=== PATIENT | female | born 1975 | race African-American/Black ===

== ENCOUNTER 2017-05-08 15:51 | Inpatient (IN) ==
[2017-05-08 17:05] LABS: Basophils % 0.2 % (0.0-0.8); Eosinophils # 0.1 10*3/uL (0.0-0.87); Eosinophils % 0.7 % (0.00-10.9); Hematocrit 35.8 VOL% (35.7-47.0); Hemoglobin 12.1 GM/DL (12.0-16.0); Immature Granulocytes % 0.4 %; Immature Granulocytes Absolute 0.04 #; Lymphocytes # 1.8 10*3/uL (1.4-4.0); Lymphocytes % 16.4 % (21.3-54.2); Mean Corpuscular HGB Conc 33.8 GM/DL (32-36); Mean Corpuscular Hemoglobin 31 PG (27-34); Mean Corpuscular Volume 90.9 FL (87-102); Mean Platelet Volume 9.1 FL (9.6-12.0); Monocytes # 0.5 10*3/uL (0.11-0.8); Monocytes % 4.4 % (1.7-12.7); Neutrophils # 8.4 10*3/uL (1.4-7.4); Neutrophils % 77.9 % (38.7-73.9); Platelet Count 178 T/CUMM (130-400); Red Blood Count 3.94 MC/CUMM (3.8-5.5); Red Cell Distribution Width 13.2 % (9.3-17.3); White Blood Count 10.8 T/CUMM (4-12)
[2017-05-08 17:16] LABS: PT Patient Result 10.6 SECS; Partial Thromboplastin Time 25.7 SECS (0-40)
[2017-05-08 17:26] LABS: Albumin 3.2 G/DL (3.4-5.0); Bilirubin,Total 0.5 MG/DL (0.2-1.0); Calcium 8.4 MG/DL (8.5-10.1); Osmolality,Calculated 281.3 MOS/KG (273-304); Potassium 3.5 MMOL/L (3.5-5.1); Total Protein 7.6 G/DL (6.4-8.3)
[2017-05-08] MEDS ORDERED: ONDANSETRON 4 MG/2 ML VIAL IV PRN (17:46)
[2017-05-08] MEDS ORDERED: SODIUM CHLORIDE 0.65% NASAL SPRAY 45 ML BOTTLE BOTH NARES PRN (17:48)
[2017-05-08] MEDS ORDERED: POTASSIUM CHLORIDE INJ 10 MEQ in SODIUM CHLORIDE 0.45% 1,000 ML IV SCH (18:00)
[2017-05-08] MEDS ORDERED: ONDANSETRON 4 MG/2 ML VIAL ONE (18:14)
[2017-05-08] MEDS ORDERED: MORPHINE 2 MG/1 ML SYRINGE ONE (18:15)
[2017-05-08] MEDS: MORPHINE 2 MG/1 ML SYRINGE IV PRN (18:16)
[2017-05-08 18:21] LABS: Apearance,Urine CLEAR (Clear); Bilirubin,Urine Negative (Negative); Blood, Urine Negative (Negative); Glucose,Urine (UA) Negative (Negative); Hyaline Casts,Urine 1 /LPF (0-3); Ketones,Urine Negative (Negative); Mucus,Urine Occasional /LPF (Occasional); Nitrite,Urine Negative (Negative); Protein,Urine Negative; RBC,Urine 1 /HPF (0-4); Squamous Epithelial Cell,Urine Occasional /HPF (0-10); Urine Color Yellow (Yellow); Urine Specific Gravity 1.013 (1.001-1.035); Urine Urobilinogen < 2.0 EU/DL (0.2-1.0); WBC,Urine 5 /HPF (0-6)
[2017-05-08] MEDS ORDERED: hydrALAZINE 20 MG/1 ML VIAL IV STA (18:38)
[2017-05-08] MEDS ORDERED: hydrALAZINE 20 MG/1 ML VIAL ONE (18:42)
[2017-05-08] MEDS ORDERED: METOPROLOL TARTRATE 25 MG TABLET PER TUBE SCH (21:00)
[2017-05-08] MEDS: INSULIN GLARGINE 100 UNIT/ML SUBCUT SCH (21:28)
[2017-05-08] MEDS: SODIUM CHLOR 0.45% KCL 20 MEQ 20 MEQ/1,000 ML BAG IV SCH (21:47)
[2017-05-08] MEDS: METOPROLOL TARTRATE 50 MG TABLET PER TUBE SCH (21:47)
[2017-05-08] MEDS: DOXAZOSIN 4 MG TABLET PER TUBE SCH (21:47)
[2017-05-09 03:50] LABS: Potassium 3.9 MMOL/L (3.5-5.1)
[2017-05-09] MEDS: SODIUM CHLOR 0.45% KCL 20 MEQ 20 MEQ/1,000 ML BAG IV SCH ×3 (07:40→21:11)
[2017-05-09] MEDS ORDERED: metFORMIN 500 MG TABLET PER TUBE SCH (08:00)
[2017-05-09] MEDS ORDERED: LISINOPRIL 20 MG TABLET PER TUBE SCH (09:00)
[2017-05-09] MEDS ORDERED: ceFAZolin 1,000 MG VIAL ONE (09:41)
[2017-05-09] MEDS: METOPROLOL TARTRATE 50 MG TABLET PER TUBE SCH (10:35)
[2017-05-09] MEDS: DOXAZOSIN 4 MG TABLET PER TUBE SCH (10:35)
[2017-05-09] MEDS ORDERED: PROPOFOL 200 MG/20 ML VIAL IV ONE (11:11)
[2017-05-09] MEDS ORDERED: NEOSTIGMINE 10 MG/10 ML VIAL ONE (11:12)
[2017-05-09] MEDS ORDERED: MIDAZOLAM 2 MG/2 ML VIAL ONE (11:12)
[2017-05-09] MEDS ORDERED: ONDANSETRON 4 MG/2 ML VIAL ONE (11:12)
[2017-05-09] MEDS ORDERED: GLYCOPYRROLATE 0.4 MG/2 ML VIAL ONE (11:12)
[2017-05-09] MEDS ORDERED: DESFLURANE 1 UNIT/15 MINUTE INH ONE (11:12)
[2017-05-09] MEDS ORDERED: fentaNYL 100 MCG/2 ML VIAL ONE (11:12)
[2017-05-09] MEDS ORDERED: ROCURONIUM 100 MG/10 ML VIAL IV ONE (11:13)
[2017-05-09] MEDS: MORPHINE 2 MG/1 ML SYRINGE IV PRN ×3 (11:36→21:14)
[2017-05-09] MEDS ORDERED: DEXTROSE 50% 25 GM/50 ML VIAL IV PRN (11:46)
[2017-05-09] MEDS ORDERED: GLUCAGON 1 MG VIAL IM PRN (11:46)
[2017-05-09] MEDS: INSULIN LISPRO 100 UNIT/ML SUBCUT SCH ×3 (13:09→20:52)
[2017-05-09] MEDS ORDERED: hydrALAZINE 20 MG/1 ML VIAL IV PRN (14:43)
[2017-05-09] MEDS ORDERED: hydrALAZINE 20 MG/1 ML VIAL IV ONE ×2 (14:43→16:14)
[2017-05-09] MEDS: CARVEDILOL 3.125 MG TABLET PO SCH ×2 (15:34→21:12)
[2017-05-09] MEDS: amLODIPine 5 MG TABLET PO SCH (15:34)
[2017-05-09] MEDS ORDERED: DILTIAZEM CD 240 MG CAPSULE PO ONE (16:13)
[2017-05-09] MEDS: LISINOPRIL 20 MG TABLET PO SCH (16:26)
[2017-05-09] MEDS: METOPROLOL TARTRATE 50 MG TABLET PO SCH ×2 (16:26→21:12)
[2017-05-09] MEDS: metFORMIN 500 MG TABLET PO SCH (18:12)
[2017-05-09] MEDS ORDERED: ACETAMINOPHEN 160 MG/5 ML UDCUP PER TUBE PRN (20:32)
[2017-05-09] MEDS: INSULIN GLARGINE 100 UNIT/ML SUBCUT SCH (20:53)
[2017-05-09] MEDS: CALCIUM (CARBONATE)/VITAMIN D 600 MG-400 UNIT TABLET PO SCH (21:12)
[2017-05-09] MEDS: DOXAZOSIN 4 MG TABLET PO SCH (21:12)
[2017-05-10 06:12] LABS: Basophils % 0.2 % (0.0-0.8); Eosinophils # 0.2 10*3/uL (0.0-0.87); Eosinophils % 2.6 % (0.00-10.9); Hematocrit 30.1 VOL% (35.7-47.0); Hemoglobin 10.3 GM/DL (12.0-16.0); Immature Granulocytes % 0.4 %; Immature Granulocytes Absolute 0.04 #; Lymphocytes # 1.6 10*3/uL (1.4-4.0); Lymphocytes % 18.1 % (21.3-54.2); Mean Corpuscular HGB Conc 34.2 GM/DL (32-36); Mean Corpuscular Hemoglobin 31 PG (27-34); Mean Corpuscular Volume 89.9 FL (87-102); Mean Platelet Volume 9.8 FL (9.6-12.0); Monocytes # 0.5 10*3/uL (0.11-0.8); Monocytes % 5.5 % (1.7-12.7); Neutrophils # 6.5 10*3/uL (1.4-7.4); Neutrophils % 73.2 % (38.7-73.9); Platelet Count 141 T/CUMM (130-400); Red Blood Count 3.35 MC/CUMM (3.8-5.5); Red Cell Distribution Width 13.5 % (9.3-17.3); White Blood Count 8.9 T/CUMM (4-12)
[2017-05-10 06:44] LABS: Calcium 8.5 MG/DL (8.5-10.1); Osmolality,Calculated 275.5 MOS/KG (273-304); Potassium 3.8 MMOL/L (3.5-5.1)
[2017-05-10] MEDS: SODIUM CHLOR 0.45% KCL 20 MEQ 20 MEQ/1,000 ML BAG IV SCH ×2 (07:50→13:32)
[2017-05-10] MEDS: INSULIN LISPRO 100 UNIT/ML SUBCUT SCH ×4 (07:50→20:03)
[2017-05-10] MEDS: CALCIUM (CARBONATE)/VITAMIN D 600 MG-400 UNIT TABLET PO SCH ×2 (09:27→20:02)
[2017-05-10] MEDS: DOXAZOSIN 4 MG TABLET PO SCH ×2 (09:28→20:02)
[2017-05-10] MEDS: METOPROLOL TARTRATE 50 MG TABLET PO SCH ×2 (09:28→20:02)
[2017-05-10] MEDS: LISINOPRIL 20 MG TABLET PO SCH (09:29)
[2017-05-10] MEDS: metFORMIN 500 MG TABLET PO SCH ×2 (09:29→17:09)
[2017-05-10] MEDS: ASPIRIN 325 MG TABLET PO SCH (09:30)
[2017-05-10] MEDS: MORPHINE 2 MG/1 ML SYRINGE IV PRN ×2 (09:36→19:50)
[2017-05-10] MEDS: amLODIPine 5 MG TABLET PO SCH (09:39)
[2017-05-10] MEDS: CARVEDILOL 3.125 MG TABLET PO SCH ×2 (09:39→20:03)
[2017-05-10] MEDS: INSULIN GLARGINE 100 UNIT/ML SUBCUT SCH (20:09)
[2017-05-10] MEDS: ATORVASTATIN 20 MG TABLET PO SCH (20:19)
[2017-05-10] MEDS ORDERED: ENOXAPARIN 40 MG/0.4 ML SYRINGE SUBCUT SCH (21:00)
[2017-05-11] MEDS: SODIUM CHLOR 0.45% KCL 20 MEQ 20 MEQ/1,000 ML BAG IV SCH ×3 (03:26→23:16)
[2017-05-11 05:34] LABS: Basophils % 0.2 % (0.0-0.8); Eosinophils # 0.2 10*3/uL (0.0-0.87); Eosinophils % 2.3 % (0.00-10.9); Hematocrit 25.9 VOL% (35.7-47.0); Hemoglobin 8.9 GM/DL (12.0-16.0); Immature Granulocytes % 0.4 %; Immature Granulocytes Absolute 0.04 #; Lymphocytes # 1.9 10*3/uL (1.4-4.0); Lymphocytes % 19.5 % (21.3-54.2); Mean Corpuscular HGB Conc 34.4 GM/DL (32-36); Mean Corpuscular Hemoglobin 31 PG (27-34); Mean Corpuscular Volume 90.9 FL (87-102); Mean Platelet Volume 10.1 FL (9.6-12.0); Monocytes # 0.5 10*3/uL (0.11-0.8); Monocytes % 4.8 % (1.7-12.7); Neutrophils # 6.9 10*3/uL (1.4-7.4); Neutrophils % 72.8 % (38.7-73.9); Platelet Count 130 T/CUMM (130-400); Red Blood Count 2.85 MC/CUMM (3.8-5.5); Red Cell Distribution Width 13.2 % (9.3-17.3); White Blood Count 9.5 T/CUMM (4-12)
[2017-05-11 06:11] LABS: Calcium 8.1 MG/DL (8.5-10.1); Osmolality,Calculated 276.5 MOS/KG (273-304); Potassium 4.1 MMOL/L (3.5-5.1)
[2017-05-11] MEDS: INSULIN LISPRO 100 UNIT/ML SUBCUT SCH ×4 (08:06→21:28)
[2017-05-11] MEDS: metFORMIN 500 MG TABLET PO SCH ×2 (09:36→19:05)
[2017-05-11] MEDS ORDERED: ASPIRIN CHEW 81 MG TABLET PO SCH (09:45)
[2017-05-11] MEDS: CALCIUM (CARBONATE)/VITAMIN D 600 MG-400 UNIT TABLET PO SCH ×2 (09:47→21:27)
[2017-05-11] MEDS: ASPIRIN 325 MG TABLET PO SCH (09:47)
[2017-05-11] MEDS: CARVEDILOL 3.125 MG TABLET PO SCH ×2 (09:48→21:27)
[2017-05-11] MEDS: amLODIPine 5 MG TABLET PO SCH (09:48)
[2017-05-11] MEDS: LISINOPRIL 20 MG TABLET PO SCH (09:48)
[2017-05-11] MEDS: DOXAZOSIN 4 MG TABLET PO SCH ×2 (09:48→21:27)
[2017-05-11] MEDS: FERROUS SULFATE 325 MG TABLET PO SCH ×2 (09:48→21:27)
[2017-05-11] MEDS: METOPROLOL TARTRATE 50 MG TABLET PO SCH ×2 (09:48→21:27)
[2017-05-11] MEDS: ATORVASTATIN 20 MG TABLET PO SCH (21:27)
[2017-05-11] MEDS: INSULIN GLARGINE 100 UNIT/ML SUBCUT SCH (21:28)
[2017-05-12] MEDS: SODIUM CHLOR 0.45% KCL 20 MEQ 20 MEQ/1,000 ML BAG IV SCH (05:54)
[2017-05-12 06:09] LABS: Basophils % 0.3 % (0.0-0.8); Eosinophils # 0.3 10*3/uL (0.0-0.87); Eosinophils % 3.4 % (0.00-10.9); Hematocrit 24.5 VOL% (35.7-47.0); Hemoglobin 8.1 GM/DL (12.0-16.0); Immature Granulocytes % 0.4 %; Immature Granulocytes Absolute 0.03 #; Lymphocytes # 2.1 10*3/uL (1.4-4.0); Lymphocytes % 26.5 % (21.3-54.2); Mean Corpuscular HGB Conc 33.1 GM/DL (32-36); Mean Corpuscular Hemoglobin 31 PG (27-34); Mean Corpuscular Volume 93.5 FL (87-102); Mean Platelet Volume 9.8 FL (9.6-12.0); Monocytes # 0.5 10*3/uL (0.11-0.8); Monocytes % 6.8 % (1.7-12.7); Neutrophils % 62.6 % (38.7-73.9); Platelet Count 139 T/CUMM (130-400); Red Blood Count 2.62 MC/CUMM (3.8-5.5)
[2017-05-12 06:35] LABS: % Iron Saturation 6.1 % (18-50)
[2017-05-12] MEDS: INSULIN LISPRO 100 UNIT/ML SUBCUT SCH ×3 (08:58→17:08)
[2017-05-12] MEDS: CALCIUM (CARBONATE)/VITAMIN D 600 MG-400 UNIT TABLET PO SCH (08:59)
[2017-05-12] MEDS: metFORMIN 500 MG TABLET PO SCH ×2 (08:59→17:09)
[2017-05-12] MEDS: FERROUS SULFATE 325 MG TABLET PO SCH (08:59)
[2017-05-12] MEDS: METOPROLOL TARTRATE 50 MG TABLET PO SCH (13:02)
[2017-05-12] MEDS: amLODIPine 5 MG TABLET PO SCH (13:02)
[2017-05-12] MEDS: DOXAZOSIN 4 MG TABLET PO SCH (13:02)
[2017-05-12] MEDS: LISINOPRIL 20 MG TABLET PO SCH (13:02)
[2017-05-12] MEDS: CARVEDILOL 3.125 MG TABLET PO SCH (13:02)
[2017-05-12 17:00] VITALS: BP 130/84
== END 2017-05-12 19:31 | DRG 308 ==
LOC: N.ED 15:51 → N.EDINP 17:16 → N.3E 19:10